=== PATIENT | male | born 1965 | race Caucasian/White ===

== ENCOUNTER 2017-07-29 03:00 | Emergency (ER) | payer BC ==
[~2017-07-29] VITALS: Ht 177.8 cm; Wt 85.7 kg
[~2017-07-29 03:00] MED LIST: AMLO-110 PO; HYDR12.55 PO
[2017-07-29 03:05] VITALS: TEMP 36.9; Ht 177.8 cm; Wt 85.7 kg
[2017-07-29] MEDS ORDERED: OXYCODONE HCL IR 5 MG TAB (IMMEDIATE RELEASE) PO STA (03:15)
[2017-07-29] MEDS ORDERED: HYDR25TA4 PO (03:56)
[2017-07-29] MEDS ORDERED: LISI-729 PO (03:57)
[2017-07-29] MEDS ORDERED: CHOL100041 PO (03:58)
[2017-07-29 05:15] LABS: BASO % 0.1 %; BASO ABS # 0.01 K/uL (0-0.2); COMPLETE YES; EOS % 0.5 %; HEMATOCRIT 41.8 % (42-52); IG% 0.5 %; LYMPH % 12.1 %; LYMPH ABS # 1.06 K/uL (1.2-3.4); MEAN CELL VOLUME 92.1 fL (80-100); MEAN CORPUSCULAR HEMOGLOBIN 31.7 pg (25-34); MEAN CORPUSCULAR HGB CONC 34.4 g/dl (32-36); MEAN PLATELET VOLUME 10.2 fL (7.4-10.4); MONO % 7.1 %; NEUT % 79.7 %; PLATELET COUNT 131 K/uL (130-400); RED BLOOD COUNT 4.54 M/uL (4.7-6.1); WHITE BLOOD COUNT 8.79 K/uL (4.8-10.8)
[2017-07-29 05:31] LABS: BUN/CREATININE RATIO 12.8 (10-20); CALCIUM 9.2 mg/dl (8.5-10.1); CREATININE 1.8 mg/dl (0.60-1.40); POTASSIUM 3.8 mmol/L (3.5-5.1)
[2017-07-29] MEDS ORDERED: SODIUM CHLORIDE 0.9% 1000ML 1,000 ML IV STA (05:36)
[2017-07-29] MEDS ORDERED: OPTIRAY 320 IV PRN (06:00)
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
[2017-07-29] MEDS ORDERED: OXYC1TAB3 PO (06:53)
[2017-07-29 06:55] VITALS: BP 136/70; PULSE 88; O2SAT 98
[2017-07-29] MEDS ORDERED: OXYCODONE IR HOME PACK PO ONE (07:00)
--- NOTE | 2017-07-29 07:14 | DIAGNOSTIC IMAGING REPORT ---
CT HEAD WITHOUT CONTRAST (CT) CLINICAL HISTORY: Head pain status post trauma COMPARISON STUDY: No previous studies for comparison. TECHNIQUE: Axial CT of the brain is performed from the vertex to the skull base. IV contrast was not administered for this examination. A dose lowering technique was utilized adhering to the principles of ALARA. CT DOSE: FINDINGS: No intra or extra-axial mass lesions are visualized. There is no CT evidence of acute cortical infarction. There is no evidence of midline shift. There is no acute hemorrhage. No calvarial fractures are visualized. There are patchy white matter hypodensities likely on a small vessel basis. There are old bilateral basal ganglia infarcts. There is no evidence of pathologic ventricular dilatation. There is no evidence of acute sinusitis IMPRESSION: 1. Old bilateral basal ganglia infarcts. No acute intracranial findings. Electronically signed by: Melvin Zelaya M.D. 07/29/2017 7:13 AM Dictated Date/Time: 07/29/2017 7:12 AM
--- NOTE | 2017-07-29 07:17 | DIAGNOSTIC IMAGING REPORT ---
RIGHT ELBOW MIN 3 VIEWS ROUTINE CLINICAL HISTORY: Right elbow pain status post trauma COMPARISON: None. DISCUSSION: The fat pads are not displaced. There is coronoid process spurring. No acute fractures or dislocations are visualized. IMPRESSION: Degenerative change. No acute fractures. Electronically signed by: Melvin Zelaya M.D. 07/29/2017 7:15 AM Dictated Date/Time: 07/29/2017 7:14 AM
--- NOTE | 2017-07-29 08:19 | DIAGNOSTIC IMAGING REPORT ---
CT OF THE CERVICAL SPINE CLINICAL HISTORY: Neck pain status post trauma. Patient fell down stairs. COMPARISON STUDY: No previous studies for comparison. CT DOSE: 1880.01 mGy.cm TECHNIQUE: CT scan of the cervical spine was performed from the skull base to the thoracic inlet. Images are reviewed in the axial, sagittal, and coronal planes. IV contrast was not administered for this examination. A dose lowering technique was utilized adhering to the principles of ALARA. FINDINGS: The visualized portions of the lung apices reveal no evidence of pneumothorax. The prevertebral soft tissues are normal. There is an acute fracture through the right C7 superior articulating facet, and right C7 transverse process. IMPRESSION: Acute fracture involving the right C7 superior articular facet and right C7 transverse process. No subluxation identified. Electronically signed by: Melvin Zelaya M.D. 07/29/2017 8:18 AM Dictated Date/Time: 07/29/2017 8:14 AM
--- NOTE | 2017-07-29 08:26 | DIAGNOSTIC IMAGING REPORT ---
CT THORACIC SPINE WITHOUT CT DOSE: CLINICAL HISTORY: Back pain status post trauma TECHNIQUE: Helical images were acquired in the transverse plane. Sagittal and coronal reformatted images were acquired. A dose lowering technique was utilized adhering to the principles of ALARA. COMPARISON STUDY: None. FINDINGS: There is an acute fracture involving the right C7 superior articular facet and right C7 transverse process. No paraspinal hematoma is visualized. There are no significant pleural effusions. Incidental note is made of large bilateral renal masses, likely representing cysts. There is no pneumothorax. There are multilevel degenerative changes within the thoracic spine with bridging anterior osteophytes. There is an equivocal fracture of the far lateral aspect of the T1 vertebral body at the costovertebral junction. IMPRESSION: 1. Acute fracture involving the right C7 superior articular facet and right C7 transverse process 2. Equivocal minimal fracture involving the far lateral aspect of the T1 vertebral body at the costovertebral junction Electronically signed by: Melvin Zelaya M.D. 07/29/2017 8:24 AM Dictated Date/Time: 07/29/2017 8:18 AM
--- NOTE | 2017-07-29 08:45 | DIAGNOSTIC IMAGING REPORT ---
CT OF THE CHEST WITH IV CONTRAST CLINICAL HISTORY: Chest pain status post trauma COMPARISON STUDY: No previous studies for comparison. TECHNIQUE: Following the IV administration of 70 mL of Optiray-320, CT of the thorax was performed from the thoracic inlet to the lung bases. Images are reviewed in the axial, sagittal, and coronal planes. IV contrast was administered without complication. A dose lowering technique was utilized adhering to the principles of ALARA. CT DOSE: FINDINGS: Thyroid: Imaged portions of the thyroid gland are normal in appearance. Thoracic aorta: The thoracic aorta is normal in course and caliber, noting standard 3-vessel arch anatomy. No aneurysm or dissection is seen. Pulmonary vasculature: The pulmonary trunk is normal in caliber. There are no central filling defects identified to suggest pulmonary embolus. Note that this examination was not protocoled for the evaluation of pulmonary emboli. HEART: The heart is normal in size and configuration, without pericardial effusion. Lungs and pleural spaces: There is no pneumothorax. There is no evidence of pulmonary contusion. No pleural effusions are visualized. Mediastinum: There is no mediastinal lymphadenopathy. Mary: Clear. Axilla: Clear. Upper abdomen: There are multiple large bilateral renal cysts. There are right lobe hepatic calcifications. Skeletal structures: There is a fracture of the right C7 superior articulating facet. This was better demonstrated on the CT scan of the cervical spine. IMPRESSION: No evidence of acute intrathoracic injury. Electronically signed by: Melvin Zelaya M.D. 07/29/2017 8:44 AM Dictated Date/Time: 07/29/2017 8:41 AM
--- NOTE | 2017-07-29 08:51 | DIAGNOSTIC IMAGING REPORT ---
CT ABD/PELVIS IV CONTRAST ONLY CLINICAL HISTORY: Dominant pain status post trauma COMPARISON STUDY: None. TECHNIQUE: Following the IV administration of 70 mL of Optiray-320, CT scan of the abdomen and pelvis was performed from the lung bases to the proximal femurs. Images are reviewed in the axial, sagittal, and coronal planes. IV contrast was administered without complication. A dose lowering technique was utilized adhering to the principles of ALARA. CT DOSE: 590.55 mGy.cm FINDINGS: Lower chest: The heart is normal in size and configuration, without pericardial effusion. The lung bases and pleural spaces are clear. Liver: There are right lobe hepatic calcifications. There is no evidence of acute hepatic injury. Gallbladder: Unremarkable. Spleen: Normal in size and attenuation. Pancreas: Unremarkable. Adrenal glands: Unremarkable. Kidneys: There are multiple large bilateral renal cysts. The largest on the left measures 10 cm. The largest in the right measures 8 cm. Bowel: There are no transition zones indicate bowel obstruction. The appendix appears normal. There is colonic diverticulosis. There are no extraluminal air collections. There is no interloop fluid. Peritoneum: There is no intraperitoneal free air or abdominal ascites. Vasculature: The abdominal aorta is normal in course and caliber. Adenopathy: None. Pelvic viscera: The bladder, and pelvic viscera are unremarkable. Skeletal structures: No destructive osseous lesions are seen. No fractures are visualized. IMPRESSION: No evidence of acute intra-abdominal or pelvic injury. Electronically signed by: Melvin Zelaya M.D. 07/29/2017 8:50 AM Dictated Date/Time: 07/29/2017 8:47 AM
== END 2017-07-29 07:03 | disposition home or self-care (01) ==
LOC: C.EDB 03:00 → C.EDC 07:03
DX: S12.601A Unspecified nondisplaced fracture of seventh cervical vertebra, initial encounter for closed fracture (principal); S22.019A Unspecified fracture of first thoracic vertebra, initial encounter for closed fracture; W19.XXXA Unspecified fall, initial encounter; I10 Essential (primary) hypertension; Z83.3 Family history of diabetes mellitus; Z82.49 Family history of ischemic heart disease and other diseases of the circulatory system